=== PATIENT | female | born 1990 | race Caucasian/White ===

== ENCOUNTER 2020-05-30 19:17 | Observation (INO) | payer OTHER, SELFPAY ==
--- NOTE | ~2020-05-30 | US_ITS ---
EXAMINATION: US OB limited DATE: 05/30/2020 20:50 INDICATION: Abdominal pain and contractions after fall during third trimester TECHNIQUE: Real-time ultrasound of the pelvis was performed. The interpreting radiologist was not pre sent for the study. COMPARISON: None. FINDINGS: There is a single living fetus in vertex presentation. The placenta is anterior and normal in appearance. cardiac activity and movement are noted. heart rate is 149 beats per minute (bpm). The amniotic fluid index is subjectively normal. IMPRESSION: 1. Single living fetus in vertex presentation. 2. Grossly normal placenta without evidence of previa or abruption. However, acute hemorrhage can be isoechoic to the placenta. Recommend continued clinical followup. Reviewed, dictated and finalized at location A. [facility] IMPRESSION: 1. Single living fetus in vertex presentation. 2. Grossly normal placenta without evidence of previa or abruption. However, a cute hemorrhage can be isoechoic to the placenta. Recommend continued clinical followup.
--- NOTE | 2020-05-30 19:17 | OBADM ---
This patient, Baylee Barry, admitted to the OB room [facility] for observation. Patient/family oriented to hospital policies and general routines including ID bracelet, bed and alarms, visiting hours, pain management, procedures, bathroom and other care routines, personal items, smoking policy, room service/diet, and visiting hours. Patient/Family are encouraged to report perceived risks to care and to ask questions if they do not understand what they are told or what they should do.
[2020-05-30 19:45] VITALS: BP 123/70; PULSE 121
[2020-05-30 19:46] VITALS: BP 123/72; PULSE 122
[2020-05-30 20:56] VITALS: BMI 26.9
[2020-05-30] MEDS: NIFEdipine 10 MG CAPSULE PO ×2 (21:23→22:26)
[2020-05-30 21:30] VITALS: TEMP 36.9
[2020-05-30 22:21] VITALS: BP 116/67; PULSE 116
[2020-05-30] MEDS: LACTATED RINGERS 1,000 ML 999 ML IV CONT (22:35)
[2020-05-30 23:18] LABS: Fetal Fibronectin Negative
[2020-05-31] MEDS: RHO(D) IMMUNE GLOBULIN 300 MCG SYRINGE IM (00:59)
--- NOTE | 2020-06-23 07:53 | PM.OBTRLD ---
OB - Triage/Final Diagnosis Evaluation Laboratory results: Laboratory Tests 05/30/20 05/30/20 20:18 22:38 Fibronectin Negative Blood Type AB Negative Antibody Screen Negative Screen TNP Baby's Blood Type TNP Baby's LEONARD TNP KB Hemoglobin Negative Doses of RhIg Required 1 Final Diagnosis (1) Fall: Code(s): W19.XXXA - Unspecified fall, initial encounter Status: Acute
== END 2020-05-31 01:44 | disposition home or self-care (01) ==
PROVIDERS: Advanced Practice Midwife; Admitting Provider Obstetrics & Gynecology; Visit Provider Obstetrics & Gynecology
DX: Z04.3 Encounter for examination and observation following other accident (principal); O26.899 Other specified pregnancy related conditions, unspecified trimester; R10.9 Unspecified abdominal pain; Z3A.00 Weeks of gestation of pregnancy not specified; W19.XXXA Unspecified fall, initial encounter
CPT/HCPCS: 36415; 76815; 82731; 85460; 85461; 90384; 96372; A9270; G0378; G0379; J2790; J7120